=== PATIENT | female | born 1945 | race Caucasian/White ===

== ENCOUNTER → 2017-03-17 | Outpatient (CLI) | payer OTHER, BC | LOC: CIMAGING 08:19 | PROVIDERS: ATTEND Family Medicine | DX: Z12.31 Encounter for screening mammogram for malignant neoplasm of breast (principal) | CPT/HCPCS: G0202 ==

== ENCOUNTER → 2017-05-02 | Outpatient (CLI) | payer OTHER, BC | LOC: FIMAGING 11:01 | PROVIDERS: ATTEND Family Medicine | DX: Z13.820 Encounter for screening for osteoporosis (principal); M85.80 Other specified disorders of bone density and structure, unspecified site; D72.9 Disorder of white blood cells, unspecified ==

== ENCOUNTER → 2018-04-11 | Outpatient (CLI) | payer OTHER, BC | LOC: CIMAGING 14:15 | PROVIDERS: ATTEND Family Medicine | DX: Z12.31 Encounter for screening mammogram for malignant neoplasm of breast (principal) ==

== ENCOUNTER 2019-02-16 18:01 | Emergency (ER) | payer OTHER, BC ==
--- NOTE | 2019-02-16 18:41 | EDPHY ---
H & P Time Seen by Provider: 02/16/19 18:06 HPI/ROS: This patient sustained a finger laceration on her finger shortly prior to arrival with moderate bleeding. She reports moderate pain. She reports no other associated injuries. She has no numbness or tingling the affected finger. ROS: Constitutional: No fevers Neuro: No numbness or tingling Motor: No difficulty moving the finger Integumentary: No complaints ROS 5 Physical Exam: Physical Exam Vital signs are normal. General: No acute distress HEENT: Atraumatic. Eyes: Pupils equal and react to light. Extraocular motions are intact. Lungs: No respiratory distress. Cardiac: Brisk capillary refill is intact throughout. Skin: No rash or pallor. 1.2 cm full-thickness laceration with mild bleeding. No tendon exposure. Extremities: Atraumatic other than finger laceration Neuro: Alert and oriented x3 with no sensorimotor deficits. Constitutional: Initial Vital Signs Temperature (C) 36.9 C 02/16/19 18:15 Heart Rate 86 02/16/19 18:15 Respiratory Rate 18 02/16/19 18:15 Blood Pressure 149/91 H 02/16/19 18:15 O2 Sat (%) 95 02/16/19 18:15 O2 Delivery Mode Room Air Allergies/Adverse Reactions: No Known Allergies Allergy (Unverified 02/16/19 18:15) Home Medications: Medication Instructions Recorded NK [No Known Home Meds] 02/16/19 MDM/Departure - MDM Procedures: The wound is 1.2 cm long. The wound was copiously irrigated with saline. The wound was explored for foreign bodies and none were found. The wound was prepped and draped in the normal sterile fashion. The edges were reapproximated using 3 running sutures with good hemostasis and cosmesis. The patient tolerated the procedure well. - Depart Disposition: Home, Routine, Self-Care Clinical Impression: Finger laceration Qualifiers: Encounter type: initial encounter Finger: little finger Damage to nail status: without damage Foreign body presence: without foreign body Laterality: left Qualified Code(s): S61.217A - Laceration without foreign body of left little finger without damage to nail, initial encounter Condition: Good Instructions: Finger Laceration (ED) Additional Instructions: Diagnosis: Finger laceration Plan: Keep the wound clean and dry for the next 2 days. Then clean it daily with warm soapy water Return for suture removal in 10-12 days Return sooner if he develops redness, discharge or other concerns for infection. Referrals: Ann Marie Murray MD [Primary Care Provider] - As per Instructions
[2019-02-16 19:02] VITALS: BP 138/78
== END 2019-02-16 19:02 | disposition home or self-care (01) ==
LOC: CED 18:01
PROC: 0HQGXZZ Repair Left Hand Skin, External Approach (ICD-10-PCS; principal; 2019-02-16)
DX: S61.217A Laceration without foreign body of left little finger without damage to nail, initial encounter (principal)
CPT/HCPCS: 99282-ER